=== PATIENT | male | born 1990 | race Caucasian/White ===

== ENCOUNTER 2021-12-15 15:30 | Emergency (ER) | payer OTHER, SELFPAY ==
--- NOTE | ~2021-12-15 | XR_ITS ---
EXAM: XR heel LT min 2V DATE: 12/15/2021 15:54 HISTORY: left heel pain X's 1 week/no trauma . COMPARISON: None available. FINDINGS: Normal mineralization. No fracture or dislocation. No lytic or blastic lesion. Joint space s are maintained. Achilles and plantar enthesopathy. No erosion or periosteal change. Soft tissues wi thin normal limits. IMPRESSION: No acute osseous finding in the left heel. Reviewed, dictated and finalized at location K.
--- NOTE | 2021-12-15 15:33 | ED.EXTPRO ---
HPI - Extremity Problem General Chief complaint: Extremity Problem,Nontraumatic Stated complaint: lt heel pain Time Seen by Provider: 12/15/21 15:33 Source: patient Mode of arrival: ambulatory Limitations: no limitations History of Present Illness HPI Narrative: Tda is a 31-year-old male patient presenting to the clinic today with complaints of left heel pain x1 week. He reports he has been wearing the same steel toed boots for approximately 8 months. He denies any injury to the left heel. Reports that the pain is worse with ambulation/stepping rates pain 8 out of 10 when ambulating. When set his pain is a 3 out of 10. States the pain is like a ripping/tearing pain. He denies any pain to the anterior heel but all of his pain is to the posterior heel near the Achilles tendon Related Data Allergies Allergy/AdvReac Type Severity Reaction Status Date / Time No Known Allergies Allergy Verified 12/15/21 15:35 Review of Systems Review of Systems: Pertinent positives per HPI. Patient denies any fever, chills, rash, headache, visual changes, dizziness, cough, runny nose, sore throat, shortness of breath, chest pain, palpitations, nausea, vomiting, diarrhea, constipation, abdominal pain, or any urinary issues. PMFSH Comments At the time of my signature, I reviewed and agree with the nursing past medical, surgical, social, and family history. There is no relevant family history pertinent to the patient complaint. Exam Narrative: General: Well-developed, well nourished, in no apparent distress Head: Normocephalic, atraumatic. Cardio: Regular rate and rhythm, s1 and s2 normal, no murmur appreciated. Resp: Clear to auscultation bilaterally, no rhonchi, rales, wheezing or rubs. Musculoskeletal: No deformity,tender to palpation over the Achilles tendon to the posterior heel, mild pain with dorsal flexion against resistance, grossly normal range of motion, muscle strength strong and equal, peripheral pulse strong, no edema, no cyanosis, normal gait and station Course Course Emergency Course: Portions of this record may have been created with voice recognition software. Level of Care: Express Care Visit Vital Signs Vital signs: Vital signs reviewed MDM - Extremity (Nontraumatic) MDM Narrative Medical decision making narrative: At the time of visit patient is resting comfortably on the exam table. I suspect the patient has Achilles tendinitis. X-ray was obtained to rule out possible bone spur causing inflammation to the Achilles tendon. Supportive measures were discussed with the patient he voiced understanding of discharge instructions and agrees to treatment plan. Differential Diagnosis Differential diagnosis: Likely lower extremity edema (Achilles tendinitis, planter fasciitis, bone spur) Discharge Plan Discharge Clinical Impression: Enthesopathy of foot Achilles tendinitis Qualifiers: Laterality: left Qualified Code(s): M76.62 - Achilles tendinitis, left leg Patient Disposition: Home, Self-Care Condition: Stable Instructions: Antibiotic Form, Achilles Tendinitis (ED) Additional Instructions: Rest, ice, and elevate May apply Voltaren cream to the affected area Take naproxen as prescribed Wear Laureano wrap as discussed Follow-up with your PCP in 1 week if symptoms persist or sooner if they worsen Prescriptions: New naproxen 500 mg tablet 500 mg PO BID PRN (Reason: pain) 7 Days Qty: 14 0RF Follow-up/Referrals: Katrin,David Mullen MD [Primary Care Provider] - Time of Disposition: 16:10 Quality NIHSS Nursing Documentation ED NIHSS nursing documentation: reviewed/agree
[2021-12-15 15:41] VITALS: BP 134/89; PULSE 101; RESP 18; TEMP 36.7; O2SAT 98
== END 2021-12-15 16:12 | disposition home or self-care (01) ==
PROVIDERS: Emergency Provider Nurse Practitioner Family; PCP Family Medicine
DX: M77.8 Other enthesopathies, not elsewhere classified (principal); M76.62 Achilles tendinitis, left leg
CPT/HCPCS: 73650; 99213; G0463

== ENCOUNTER 2022-03-10 22:39 | Emergency (ER) | payer OTHER, SELFPAY ==
--- NOTE | ~2022-03-10 | XR_ITS ---
EXAM: XR hand RT min 3V DATE: 03/10/2022 22:57 HISTORY: extension ladder hit right hand at work today . COMPARISON: None available. FINDINGS: Normal mineralization. Nondisplaced avulsion fractures at the proximal and anterior aspect of the right third and fourth middle phalanges. No lytic or blastic lesion. Joint spaces are maintai nathaniel. No erosion or periosteal change. Soft tissues within normal limits. IMPRESSION: Nondisplaced volar plate avulsion fractures at the proximal aspect of the right third and fourth middle phalanges. Reviewed, dictated and finalized at location K. KEEPER
[2022-03-10 22:44] VITALS: BP 141/92; PULSE 99; RESP 20; TEMP 36.1; O2SAT 98
--- NOTE | 2022-03-11 00:06 | ED.UPPEXIN ---
HPI - Extremity Injury (Upper) General Chief Complaint: Extremity Injury, Upper Stated Complaint: right hand injury Time Seen by Provider: 03/10/22 23:26 Source: patient Mode of arrival: ambulatory Limitations: no limitations History of Present Illness HPI narrative: This is a 31 year old male that presents to the ER for an injury sustained earlier in the day. Reports the ladder was falling and he caught it with his right hand. Since he has a pain and decreased range of motion due to his third and fourth fingers. Denies numbness. Related Data Allergies Allergy/AdvReac Type Severity Reaction Status Date / Time No Known Allergies Allergy Verified 03/10/22 22:44 Review of Systems Review of Systems: CONSTITUTIONAL: Denies fever MUSCULOSKELETAL: Reports joint pain, and myalgia. NEUROLOGIC: Denies numbness All systems reviewed & are unremarkable except as noted in HPI and below PMFSH Past Medical History Medical History (Updated 03/11/22 @ 00:14 by Fern Reeves PA-C) No active medical problems Social History Social History (Updated 03/11/22 @ 00:15 by Fern Reeves PA-C) Substance use: never Exam Narrative: GENERAL: Well-appearing, well-nourished, and in no acute distress. HEAD: Normocephalic, atraumatic. EYES: EOMI. EXTREMITIES: Decreased flexion noted in the 3rd and 4th fingers due to pain. No edema or obvious deformity. Normal radial pulse. Normal sensation SKIN: Warm, dry, no rash. NEURO: No focal deficits. Alert and oriented x3. PSYCH: Normal mood and affect Course Vital Signs Vital signs: Vital Signs Temperature 97.0 F L 03/10/22 22:44 Pulse Rate 99 03/10/22 22:44 Respiratory Rate 20 03/10/22 22:44 Blood Pressure 141/92 H 03/10/22 22:44 Pulse Oximetry 98 03/10/22 22:44 Oxygen Delivery Room Air 03/10/22 22:44 Temperature 97.0 F L 03/10/22 22:44 Pulse Rate 99 03/10/22 22:44 Respiratory Rate 20 03/10/22 22:44 Blood Pressure 141/92 H 03/10/22 22:44 Pulse Oximetry 98 03/10/22 22:44 Oxygen Delivery Room Air 03/10/22 22:44 MDM - Extremity Injury (Upper) MDM Narrative Medical decision making narrative: Patient presents emergency department after an injury earlier today with pain in his third and fourth fingers. He is neurovascularly intact. Left hand x-ray shows nondisplaced volar plate avulsion fractures at the proximal aspect of the right third and fourth middle phalanges. Patient placed in finger splints. Will be given follow-up with hand surgery. He was given warnings to return to the ER Imaging Data Radiologist's impression: ITS Impressions Hand X-Ray 03/10/22 23:01 IMPRESSION: Nondisplaced volar plate avulsion fractures at the proximal aspect of the right third and fourth middle phalanges. Critical Care Time Critical Care Time Critical Care Time: No Discharge Plan Discharge Clinical Impression: Finger fracture, right Qualifiers: Encounter type: initial encounter Finger: middle finger Fracture type: closed Phalanx: middle Fracture alignment: nondisplaced Qualified Code(s): S62.652A - Nondisplaced fracture of middle phalanx of right middle finger, initial encounter for closed fracture Patient Disposition: Home, Self-Care Condition: Stable Instructions: Finger Fracture (ED) Additional Instructions: Return to the ER if you experience fever, redness and swelling of your hand, numbness, or any other symptoms that are concerning to you Rest. Wear splints. Ice to the area. Tylenol or ibuprofen as needed for pain Follow-up with hand surgery (Dr. Cuevas) Prescriptions: No Action naproxen 500 mg tablet 500 mg PO BID PRN (Reason: pain) 7 Days Qty: 14 0RF Follow-up/Referrals: David Cuevas MD [Physician] - 1 Week Katrin,David Mullen MD [Primary Care Provider] - Stand Alone Forms: Work/School Release IP
[2022-03-11 00:24] VITALS: BP 148/89; PULSE 94; RESP 16; O2SAT 98
== END 2022-03-11 00:27 | disposition home or self-care (01) ==
PROVIDERS: Emergency Provider Physician Assistant; PCP Family Medicine
DX: S62.652A Nondisplaced fracture of middle phalanx of right middle finger, initial encounter for closed fracture (principal); W20.8XXA Other cause of strike by thrown, projected or falling object, initial encounter
CPT/HCPCS: 29130; 73130; 99284

== ENCOUNTER 2022-05-02 11:20 | Emergency (ER) | payer OTHER, SELFPAY ==
[2022-05-02 11:33] VITALS: BP 124/93; PULSE 99; RESP 18; TEMP 36.1; O2SAT 97
--- NOTE | 2022-05-02 11:54 | ED.URI ---
HPI - URI/Sore Throat General Chief Complaint: Upper Respiratory Infection Stated Complaint: congestion Time Seen by Provider: 05/02/22 11:40 Source: patient Mode of arrival: ambulatory Limitations: no limitations History of Present Illness HPI Narrative: Tad is a 31-year-old male patient presenting to the clinic today with complaints of nasal congestion, sinus pressure, productive cough x2 weeks. He reports that he is coughing up green and yellow phlegm. Denies any known fever or chills. MD elicited complaint: cough, rhinorrhea, nasal congestion and sinus pain Related Data Allergies Allergy/AdvReac Type Severity Reaction Status Date / Time No Known Allergies Allergy Verified 05/02/22 11:53 Review of Systems Review of Systems: Pertinent positives per HPI. Patient denies any fever, chills, rash, visual changes, dizziness, shortness of breath, chest pain, palpitations, nausea, vomiting, diarrhea, constipation, abdominal pain, or any urinary issues. PMFSH Past Medical History Medical History (Updated 05/02/22 @ 11:55 by Edmond Jay, MICKEY) No active medical problems Social History Social History (Updated 03/11/22 @ 00:15 by Fern Reeves PA-C) Substance use: never Comments At the time of my signature, I reviewed and agree with the nursing past medical, surgical, social, and family history. There is no relevant family history pertinent to the patient complaint. Exam Narrative: General: Well-developed, well nourished, in no apparent distress Head: Normocephalic, atraumatic Eyes: Pupils equally round and reactive to light bilaterally, EOM intact, sclera and conjunctive clear, no discharge, lids normal Ears: TMs intact and clear, ear canals clear, no drainage, grossly hearing normal. Nose: Nares patent, green nasal discharge, moderate inflammation, maxillary and frontal sinus tenderness. Mouth: Oral pharynx without lesions or masses, good dentition, MMM. Postnasal drip Neck: Supple, trachea midline, no enlargement of anterior or posterior cervical nodes, no thyroid masses or goiter palpable. Cardio: Regular rate and rhythm, s1 and s2 normal, no murmur appreciated. Resp: Clear to auscultation bilaterally, no rhonchi, rales, wheezing or rubs Course Course Emergency Course: Portions of this record may have been created with voice recognition software. Level of Care: Express Care Visit Vital Signs Vital signs: Vital Signs Temperature 36.1 C L 05/02/22 11:33 Pulse Rate 99 05/02/22 11:33 Respiratory Rate 18 05/02/22 11:33 Blood Pressure 124/93 H 05/02/22 11:33 Pulse Oximetry 97 05/02/22 11:33 Oxygen Delivery Room Air 05/02/22 11:33 Temperature 36.1 C L 05/02/22 11:33 Pulse Rate 99 05/02/22 11:33 Respiratory Rate 18 05/02/22 11:33 Blood Pressure 124/93 H 05/02/22 11:33 Pulse Oximetry 97 05/02/22 11:33 Oxygen Delivery Room Air 05/02/22 11:33 Vital signs reviewed MDM - URI/Sore Throat MDM Narrative Medical decision making narrative: At the time of visit patient is resting comfortably on the exam table. I suspect patient has acute rhinosinusitis. Prescription for Augmentin and prednisone was sent to the pharmacy and supportive measures were discussed with the patient and he voiced understanding of discharge instructions and agrees to treatment plan. Differential Diagnosis Differential diagnosis: Likely upper respiratory infection, otitis media, sinusitis, viral infection, bronchitis, influenza, pharyngitis and other (COVID) Discharge Plan Discharge Clinical Impression: Acute bacterial rhinosinusitis Patient Disposition: Home, Self-Care Condition: Stable Instructions: Antibiotic Form, Rhinosinusitis (ED) Additional Instructions: Take prescription medications only as prescribed-Augmentin and prednisone Increase fluids and stay well hydrated Tylenol/motrin for pain/fever Flonase and OTC antihistamines as directed Vicks vapor rub
== END 2022-05-02 12:00 | disposition home or self-care (01) ==
PROVIDERS: Emergency Provider Nurse Practitioner Family; PCP Family Medicine
DX: J01.90 Acute sinusitis, unspecified (principal)
CPT/HCPCS: 99213; G0463